=== PATIENT | female | born 1950 | race African-American/Black ===

== ENCOUNTER 2017-09-05 18:29 | Emergency (ER) | payer MEDICARE, MEDICAID ==
[~2017-09-05] VITALS: Ht 167.6 cm; Wt 77.0 kg
[2017-09-05 22:07] VITALS: BP 126/70
== END 2017-09-05 22:10 | disposition home or self-care (01) ==
LOC: ER 18:29
DX: E11.649 Type 2 diabetes mellitus with hypoglycemia without coma (principal); E11.22 Type 2 diabetes mellitus with diabetic chronic kidney disease; N18.9 Chronic kidney disease, unspecified
CPT/HCPCS: 82962; 99283